=== PATIENT | male | born 1975 | race African-American/Black ===

== ENCOUNTER 2018-06-06 16:00 | Observation (INO) ==
[2018-06-06] MEDS ORDERED: ACETAMINOPHEN 325 MG TABLET PO PRN (16:08)
[2018-06-06] MEDS ORDERED: ONDANSETRON 4 MG/2 ML VIAL IV PRN (16:08)
[2018-06-06 17:17] LABS: Basophils % 0.5 % (0.0-0.8); Eosinophils # 0.1 10*3/uL (0.0-0.87); Eosinophils % 0.6 % (0.00-10.9); Hematocrit 39.3 VOL% (42.0-52.0); Hemoglobin 12.3 GM/DL (14.0-18.0); Immature Granulocytes % 1.7 %; Immature Granulocytes Absolute 0.13 #; Lymphocytes # 1.7 10*3/uL (1.4-4.0); Lymphocytes % 21.1 % (21.2-54.2); Mean Corpuscular HGB Conc 31.3 GM/DL (32-36); Mean Corpuscular Hemoglobin 30 PG (27-34); Mean Corpuscular Volume 97.3 FL (87-102); Mean Platelet Volume 10.8 FL (9.6-12.0); Monocytes # 0.9 10*3/uL (0.11-0.8); Monocytes % 11.5 % (1.7-12.7); Neutrophils # 5.1 10*3/uL (1.4-7.4); Neutrophils % 64.6 % (38.7-73.9); Platelet Count 193 T/CUMM (130-400); Red Blood Count 4.04 MC/CUMM (3.8-5.5); Red Cell Distribution Width 15.9 % (9.3-17.3); White Blood Count 7.9 T/CUMM (4-12)
[2018-06-06 17:36] LABS: Albumin 3.4 G/DL (3.4-5.0); Bilirubin,Total 2.8 MG/DL (0.2-1.0); Calcium 8.8 MG/DL (8.5-10.1); Osmolality,Calculated 271.4 MOS/KG (273-304); Potassium 4.6 MMOL/L (3.5-5.1); Total Protein 7.6 G/DL (6.4-8.3)
[2018-06-06 17:37] LABS: Troponin I 0.037 NG/ML (0.00-0.045)
[2018-06-06] MEDS: FUROSEMIDE 40 MG/4 ML VIAL IV SCH (17:52)
[2018-06-06] MEDS: ENOXAPARIN 40 MG/0.4 ML SYRINGE SUBCUT SCH (17:53)
[2018-06-06] MEDS ORDERED: NITROGLYCERIN SL 0.4 MG TABLET SL PRN (19:01)
[2018-06-06] MEDS: DOCUSATE SODIUM 100 MG CAPSULE PO SCH (21:20)
[2018-06-06] MEDS: POTASSIUM CHLORIDE 20 MEQ TABLET PO SCH (21:20)
[2018-06-07 04:39] LABS: Basophils % 0.4 % (0.0-0.8); Eosinophils # 0.1 10*3/uL (0.0-0.87); Eosinophils % 0.8 % (0.00-10.9); Hematocrit 35.7 VOL% (42.0-52.0); Hemoglobin 11.2 GM/DL (14.0-18.0); Immature Granulocytes % 1.2 %; Immature Granulocytes Absolute 0.09 #; Lymphocytes # 1.9 10*3/uL (1.4-4.0); Mean Corpuscular HGB Conc 31.4 GM/DL (32-36); Mean Corpuscular Hemoglobin 30 PG (27-34); Mean Platelet Volume 10.7 FL (9.6-12.0); Monocytes # 0.9 10*3/uL (0.11-0.8); Monocytes % 11.8 % (1.7-12.7); Neutrophils # 4.6 10*3/uL (1.4-7.4); Neutrophils % 60.8 % (38.7-73.9); Platelet Count 184 T/CUMM (130-400); Red Blood Count 3.72 MC/CUMM (3.8-5.5); Red Cell Distribution Width 15.8 % (9.3-17.3); White Blood Count 7.6 T/CUMM (4-12)
[2018-06-07 04:57] LABS: Calcium 8.5 MG/DL (8.5-10.1); Osmolality,Calculated 273.2 MOS/KG (273-304); Potassium 4.6 MMOL/L (3.5-5.1)
[2018-06-07 05:29] LABS: Risk Ratio 4.25; VLDL CHOLESTEROL 16.8 MG/DL
[2018-06-07] MEDS: FUROSEMIDE 40 MG/4 ML VIAL IV SCH ×2 (10:38→16:40)
[2018-06-07] MEDS: DOCUSATE SODIUM 100 MG CAPSULE PO SCH ×2 (14:05→21:28)
[2018-06-07] MEDS: ASPIRIN EC 81 MG TABLET PO SCH (14:52)
[2018-06-07] MEDS: POTASSIUM CHLORIDE 20 MEQ TABLET PO SCH ×2 (14:52→21:28)
[2018-06-07] MEDS: METOPROLOL SUCCINATE XL 25 MG TABLET PO SCH (14:52)
[2018-06-07] MEDS: SPIRONOLACTONE 25 MG TABLET PO SCH (14:52)
[2018-06-07] MEDS: PANTOPRAZOLE 40 MG TABLET PO SCH (14:52)
[2018-06-07] MEDS: ENOXAPARIN 40 MG/0.4 ML SYRINGE SUBCUT SCH (16:41)
[2018-06-08 04:35] LABS: Basophils % 0.3 % (0.0-0.8); Eosinophils # 0.1 10*3/uL (0.0-0.87); Eosinophils % 1.1 % (0.00-10.9); Hematocrit 37.2 VOL% (42.0-52.0); Hemoglobin 11.4 GM/DL (14.0-18.0); Immature Granulocytes % 1.1 %; Immature Granulocytes Absolute 0.07 #; Lymphocytes # 1.4 10*3/uL (1.4-4.0); Mean Corpuscular HGB Conc 30.6 GM/DL (32-36); Mean Corpuscular Hemoglobin 29 PG (27-34); Mean Corpuscular Volume 95.6 FL (87-102); Mean Platelet Volume 11.1 FL (9.6-12.0); Monocytes # 0.6 10*3/uL (0.11-0.8); Monocytes % 9.4 % (1.7-12.7); Neutrophils # 4.2 10*3/uL (1.4-7.4); Neutrophils % 66.1 % (38.7-73.9); Platelet Count 198 T/CUMM (130-400); Red Blood Count 3.89 MC/CUMM (3.8-5.5); White Blood Count 6.4 T/CUMM (4-12)
[2018-06-08 04:53] LABS: Calcium 8.3 MG/DL (8.5-10.1); Potassium 4.4 MMOL/L (3.5-5.1)
[2018-06-08 04:58] LABS: Albumin 3.1 G/DL (3.4-5.0); Bilirubin,Direct 0.88 MG/DL (0.0-0.20); Bilirubin,Total 1.9 MG/DL (0.2-1.0); Total Protein 6.9 G/DL (6.4-8.3)
[2018-06-08] MEDS: cefTRIAXone 1,000 MG in SYRINGE 1 EACH IV SCH (05:02)
[2018-06-08 05:15] LABS: Apearance,Urine CLEAR (Clear); Bilirubin,Urine Negative (Negative); Blood, Urine Negative (Negative); Glucose,Urine (UA) Negative (Negative); Ketones,Urine Negative (Negative); Nitrite,Urine Negative (Negative); Protein,Urine Negative; RBC,Urine 1 /HPF (0-4); Squamous Epithelial Cell,Urine Occasional /HPF (0-10); Urine Color Amber (Yellow); Urine Specific Gravity 1.023 (1.001-1.035); WBC,Urine 1 /HPF (0-6)
[2018-06-08] MEDS: LOSARTAN 25 MG TABLET PO SCH (09:35)
[2018-06-08] MEDS: POTASSIUM CHLORIDE 20 MEQ TABLET PO SCH ×2 (09:35→21:40)
[2018-06-08] MEDS: ASPIRIN EC 81 MG TABLET PO SCH (09:35)
[2018-06-08] MEDS: PANTOPRAZOLE 40 MG TABLET PO SCH (09:35)
[2018-06-08] MEDS: SPIRONOLACTONE 25 MG TABLET PO SCH (09:35)
[2018-06-08] MEDS: METOPROLOL SUCCINATE XL 25 MG TABLET PO SCH (09:35)
[2018-06-08] MEDS: DOCUSATE SODIUM 100 MG CAPSULE PO SCH ×2 (09:36→21:40)
[2018-06-08] MEDS: FUROSEMIDE 40 MG/4 ML VIAL IV SCH ×2 (09:36→17:26)
[2018-06-08] MEDS: ENOXAPARIN 40 MG/0.4 ML SYRINGE SUBCUT SCH (17:26)
[2018-06-09] MEDS: cefTRIAXone 1,000 MG in SYRINGE 1 EACH IV SCH (04:15)
[2018-06-09 05:20] LABS: Basophils % 0.4 % (0.0-0.8); Eosinophils # 0.1 10*3/uL (0.0-0.87); Eosinophils % 1.8 % (0.00-10.9); Hematocrit 39.4 VOL% (42.0-52.0); Immature Granulocytes % 1.5 %; Immature Granulocytes Absolute 0.12 #; Lymphocytes # 1.7 10*3/uL (1.4-4.0); Mean Corpuscular HGB Conc 30.5 GM/DL (32-36); Mean Corpuscular Hemoglobin 30 PG (27-34); Mean Corpuscular Volume 97.3 FL (87-102); Mean Platelet Volume 11.3 FL (9.6-12.0); Monocytes # 0.8 10*3/uL (0.11-0.8); Monocytes % 9.6 % (1.7-12.7); Neutrophils # 5.3 10*3/uL (1.4-7.4); Neutrophils % 65.7 % (38.7-73.9); Platelet Count 223 T/CUMM (130-400); Red Blood Count 4.05 MC/CUMM (3.8-5.5)
[2018-06-09 05:41] LABS: Calcium 8.4 MG/DL (8.5-10.1); Osmolality,Calculated 276.1 MOS/KG (273-304); Potassium 4.5 MMOL/L (3.5-5.1)
[2018-06-09] MEDS: SPIRONOLACTONE 25 MG TABLET PO SCH (09:09)
[2018-06-09] MEDS: DOCUSATE SODIUM 100 MG CAPSULE PO SCH (09:09)
[2018-06-09] MEDS: METOPROLOL SUCCINATE XL 25 MG TABLET PO SCH (09:09)
[2018-06-09] MEDS: FUROSEMIDE 40 MG/4 ML VIAL IV SCH (09:09)
[2018-06-09] MEDS: ASPIRIN EC 81 MG TABLET PO SCH (09:10)
[2018-06-09] MEDS: POTASSIUM CHLORIDE 20 MEQ TABLET PO SCH (09:10)
[2018-06-09] MEDS: LOSARTAN 25 MG TABLET PO SCH (09:10)
[2018-06-09] MEDS: PANTOPRAZOLE 40 MG TABLET PO SCH (09:10)
[2018-06-09 12:45] VITALS: BP 106/66
== END 2018-06-09 15:22 | disposition home or self-care (01) ==
LOC: INTOOBSV 16:00 → N.2W 16:00 → N.TELEN 18:51
PROVIDERS: ADMIT Family Medicine; ATTEND Family Medicine